=== PATIENT | male | born 1940 | race Caucasian/White ===

== ENCOUNTER 2022-08-03 12:23 | Emergency (ER) | payer OTHER ==
[2022-08-03] MEDS ORDERED: COLLAGENASE 30 GM OINTMENT TOP ONE (13:00)
--- NOTE | 2022-08-03 13:30 | ER ---
Nurse's Notes [facility] Name: Srinivasan Salgado Age: 81 yrs Sex: Male : 1940 Arrival Date: 08/03/2022 Time: 12:25 Bed 19 Private MD: Carrie Batista Diagnosis: Pressure ulcer of sacral region, stage 2 Presentation: 08/03 12:32 Chief complaint: Abscess on buttock x 1 month. Coronavirus screen: At this time, the hb client does not indicate any symptoms associated with coronavirus-19. Ebola Screen: No symptoms or risks identified at this time. Initial Sepsis Screen: Does the patient meet any 2 criteria? No. Patient's initial sepsis screen is negative. Does the patient have a suspected source of infection? No. Patient's initial sepsis screen is negative. Risk Assessment: Do you want to hurt yourself or someone else? Patient reports no desire to harm self or others. Onset of symptoms was July 2022. 12:32 Method Of Arrival: Ambulatory 12:32 Acuity: CHAVO 4 Triage Assessment: 12:54 General: Appears in no apparent distress. uncomfortable, Behavior is calm, cooperative, kc6 appropriate for age. Pain: Complains of pain in coccyx Pain does not radiate. Pain currently is 4 out of 10 on a pain scale. Quality of pain is described as aching, Pain began gradually, Is chronic, Alleviated by repositioning, Aggravated by weight bearing, Current management is with CBD oil, Penicillin Cream, memory foam cushion. is partially effective. EENT: No signs and/or symptoms were reported regarding the EENT system. Neuro: Andres Agitation-Sedation Scale (RASS): 0 - Alert and Calm Level of Consciousness is awake, alert, obeys commands, Oriented to person, place, time, situation, Appropriate for age. Cardiovascular: Capillary refill < 3 seconds. Respiratory: Airway is patent Respiratory effort is even, unlabored, Respiratory pattern is regular, symmetrical. GI: No signs and/or symptoms were reported involving the gastrointestinal system. : No signs and/or symptoms were reported regarding the genitourinary system. Derm: Skin is healthy with good turgor, blanchable erythema and skin breakdown to the sacral area without swelling or drainage Skin is pink, warm \T\ dry. Wound noted coccyx. Musculoskeletal: No signs and/or symptoms reported regarding the musculoskeletal system. Circulation, motion, and sensation intact. Capillary refill < 3 seconds, Range of motion: intact in all extremities. Historical: - Allergies: 12:33 Lipitor; hb 12:33 TETRACYCLINES; hb - Home Meds: 13:01 Glipizide Oral [Active]; Metformin Oral [Active]; Metoprolol Tartrate Oral [Active]; kc6 Lantus Sub-Q [Active]; Isosorbide Dinitrate Oral [Active]; Aspirin Oral [Active]; atorvastatin oral [Active]; Vitamin D Oral [Active]; ezetimibe oral [Active]; Furosemide Oral [Active]; losartan oral [Active]; pantoprazole oral [Active]; - PMHx: 13:01 Diabetes mellitus; Chronic obstructive lung disease; Hypertensive disorder; kc6 - PSHx: 13:01 Appendectomy; kc6 - Immunization history:: Client reports having NOT received the Covid vaccine. Flu vaccine is not up to date. - Social history:: Smoking status: unknown. - Family history:: not pertinent. - Hospitalizations: : No recent hospitalization is reported. Screenin:08 Abuse screen: Denies threats or abuse. Denies injuries from another. Nutritional kc6 screening: No deficits noted. Tuberculosis screening: No symptoms or risk factors identified. Fall Risk No fall in past 12 months (0 pts). No secondary diagnosis (0 pts). No IV (0 pts). Ambulatory Aid- None/Bed Rest/Nurse Assist (0 pts). Gait- Normal/Bed Rest/Wheelchair (0 pts) Mental Status- Oriented to own ability (0 pts). Total Jalloh Fall Scale indicates No Risk (0-24 pts). Assessment: 13:00 Reassessment: see triage assessment. kc6 Vital Signs: 12:32 BP 117 / 56; Pulse 83; Resp 16; Temp 97.8; Pulse Ox 100% on R/A; Weight 88 kg; Height 5 hb ft. 8 in. (172.72 cm); Pain 9/10; 12:59 BP 117 / 56 Sitting (auto/reg); Pulse 83; Resp 16 S; Temp 97.5(O); Pulse Ox 99% on R/A; kc6 Pain 4/10; 12:32 Body Mass Index 29.50 (88.00 kg, 172.72 cm) hb ED Course: 12:25 Patient arrived in ED. am2 12:25 Carrie Batista FNP-C is Private Physician. am2 12:28 Milind Felipe, RN is Primary Nurse. jd3 12:29 Wilfred Trent MD is Attending Physician. rn 12:33 Triage completed. hb 12:33 Arm band placed on. hb 13:08 Patient has correct armband on for positive identification. Bed in low position. Call kc6 light in reach. Adult w/ patient. 13:08 No provider procedures requiring assistance completed. kc6 13:37 Patient did not have IV access during this emergency room visit. kc6 Administered Medications: 13:07 Drug: Santyl (collagenase) Ointment 250 unit/g 1 application Route: Topical; Site: kc6 affected area; Medication: 13:39 VIS not applicable for this client. kc6 Outcome: 13:30 Discharge ordered by . rn 13:37 Discharged to home ambulatory, with family. kc6 13:37 Condition: stable 13:37 Discharge instructions given to patient, family, Instructed on discharge instructions, medication usage, wound care, Demonstrated understanding of instructions, medications, wound care, Prescriptions given X 1. 13:39 Patient left the ED. kc6 Signatures: Wilfred Trent MD MD rn Baxter, Heather, RN RN Sapna Zimmerman 2 Milind Felipe, Toya Smith RN, RN RN kcGi
--- NOTE | 2022-08-03 13:30 | EDPHYS ---
Physician Documentation [facility] Name: Srinivasan Salgado Age: 81 yrs Sex: Male : 1940 Arrival Date: 08/03/2022 Time: 12:25 Bed 19 Private MD: Carrie Batista ED Physician Wilfred Trent HPI: 08/03 14:46 This 81 yrs old Male presents to ER via Ambulatory with complaints of Skin Sore(s). rn 14:46 the patient presents with a swollen area of the buttocks and coccyx. Description: rn erythematous, swollen. 14:48 Onset: The symptoms/episode began/occurred 1 month(s) ago. Possible cause(s): pressure rn ulcer. Associated signs and symptoms: Pertinent positives: erythema, Pertinent negatives: drainage, fever, swelling. Modifying factors: the symptoms are alleviated by nothing, the symptoms are aggravated by pressure, sitting. Severity of symptoms: At their worst the symptoms were moderate, in the emergency department the symptoms are unchanged. The patient has not experienced similar symptoms in the past. The patient has not recently seen a physician. 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 No swelling or abscess. No drainage. . Historical: - Allergies: 12:33 Lipitor; hb 12:33 TETRACYCLINES; hb - Home Meds: 13:01 Glipizide Oral [Active]; Metformin Oral [Active]; Metoprolol Tartrate Oral [Active]; kc6 Lantus Sub-Q [Active]; Isosorbide Dinitrate Oral [Active]; Aspirin Oral [Active]; atorvastatin oral [Active]; Vitamin D Oral [Active]; ezetimibe oral [Active]; Furosemide Oral [Active]; losartan oral [Active]; pantoprazole oral [Active]; - PMHx: 13:01 Diabetes mellitus; Chronic obstructive lung disease; Hypertensive disorder; kc6 - PSHx: 13:01 Appendectomy; kc6 - Immunization history:: Client reports having NOT received the Covid vaccine. Flu vaccine is not up to date. - Social history:: Smoking status: unknown. - Family history:: not pertinent. - Hospitalizations: : No recent hospitalization is reported. ROS: 14:48 Constitutional: Negative for fever, chills, and weight loss, Cardiovascular: Negative rn for chest pain, palpitations, and edema, Respiratory: Negative for shortness of breath, cough, wheezing, and pleuritic chest pain, Abdomen/GI: Negative for abdominal pain, nausea, vomiting, diarrhea, and constipation, Back: Negative for injury MS/Extremity: Negative for injury and deformity, Skin: + mild redness to tailbone Neuro: Negative for headache, weakness, numbness, tingling, and seizure. Exam: 14:48 Constitutional: This is a well developed, well nourished patient who is awake, alert, rn and in no acute distress. Cardiovascular: Regular rate and rhythm. No pulse deficits. Respiratory: No increased work of breathing, no retractions or nasal flaring. Skin: + erythema and irritation in gluteal cleft overlying coccyx, + small area of open ulcer/pressure ulcer. NO drainage. NO fluctuance. Vital Signs: 12:32 BP 117 / 56; Pulse 83; Resp 16; Temp 97.8; Pulse Ox 100% on R/A; Weight 88 kg; Height 5 hb ft. 8 in. (172.72 cm); Pain 9/10; 12:59 BP 117 / 56 Sitting (auto/reg); Pulse 83; Resp 16 S; Temp 97.5(O); Pulse Ox 99% on R/A; kc6 Pain 4/10; 12:32 Body Mass Index 29.50 (88.00 kg, 172.72 cm) hb MDM: 12:29 Patient medically screened. rn 14:48 Differential diagnosis: pressure ulceration, pressure sore. Data reviewed: vital signs, rn nurses notes, and as a result, I will discharge patient. Counseling: I had a detailed discussion with the patient and/or guardian regarding: the historical points, exam findings, and any diagnostic results supporting the discharge/admit diagnosis, the need for outpatient follow up, to return to the emergency department if symptoms worsen or persist or if there are any questions or concerns that arise at home. Special discussion: I discussed with the patient/guardian in detail that at this point there is no indication for admission to the hospital. It is understood, however, that if the symptoms persist or worsen the patient needs to return immediately for re-evaluation. ED course: Given bottle of santyl for wound application, recommend seat cushion, and change in pants given jeans with thick fold/crease where it hurts him. . Administered Medications: 13:07 Drug: Santyl (collagenase) Ointment 250 unit/g 1 application Route: Topical; Site: kc6 affected area; Disposition Summary: 08/03/22 13:30 Discharge Ordered Location: Home rn Problem: an ongoing problem rn Symptoms: have improved rn Condition: Stable rn Diagnosis - Pressure ulcer of sacral region, stage 2 rn Followup: rn - With: Private Physician - When: As needed - Reason: Recheck today's complaints, Re-evaluation by your physician Discharge Instructions: - Discharge Summary Sheet rn - Wound Care, Adult rn Forms: - Medication Reconciliation Form rn - Thank You Letter rn - 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
[2022-08-03 13:50] VITALS: BP 117/56
[2022-08-03 13:51] VITALS: TEMP 97.5; O2SAT 99
== END 2022-08-03 13:39 | disposition home or self-care (01) ==
LOC: ER 12:23
DX: L89.152 Pressure ulcer of sacral region, stage 2 (principal); E11.9 Type 2 diabetes mellitus without complications; I10 Essential (primary) hypertension; Z79.82 Long term (current) use of aspirin; Z79.4 Long term (current) use of insulin; Z88.1 Allergy status to other antibiotic agents; Z88.8 Allergy status to other drugs, medicaments and biological substances
CPT/HCPCS: 99283; J3590

== ENCOUNTER 2022-08-04 11:30 | Emergency (ER) | payer OTHER ==
--- NOTE | 2022-08-04 12:42 | RAD REPORT ---
EXAM DESCRIPTION: US - Lower Extremity Artery Uni Ltd - 08/04/2022 12:34 pm CLINICAL HISTORY: Leg pain COMPARISON: None FINDINGS: The right common femoral, superficial femoral and popliteal arteries demonstrate triphasic waveforms The right posterior tibial and dorsalis pedis arteries demonstrate biphasic waveforms Grayscale, color and spectral analysis performed on all vessels IMPRESSION: Mild distal lower extremity arterial disease
--- NOTE | 2022-08-04 12:46 | RAD REPORT ---
EXAM DESCRIPTION: USExtremity Venous Uni Ltd08/04/2022 12:34 pm CLINICAL HISTORY: Right leg pain COMPARISON: None. FINDINGS: Right common femoral, superficial femoral, popliteal and right posterior tibial veins are compressible and demonstrate augmentation. Doppler demonstrates good flow. 3 x 2 centimeter Nelson's cyst Grayscale, color and spectral analysis performed on all vessels IMPRESSION: No evidence of deep venous thrombosis involving the right lower extremity. 3 centimeter Nelson's cyst
[2022-08-04] MEDS ORDERED: KETOROLAC 30 MG/ML INJ ONE (13:08)
--- NOTE | 2022-08-04 13:47 | RAD REPORT ---
EXAM DESCRIPTION: RAD - Knee Right 3 View - 08/04/2022 1:39 pm CLINICAL HISTORY: Right knee pain FINDINGS: No fracture or dislocation is seen. No significant bone or joint abnormality seen Vas are calcifications present
--- NOTE | 2022-08-04 14:11 | ER ---
Nurse's Notes [facility] Name: Srinivasan Salgado Age: 81 yrs Sex: Male : 1940 Arrival Date: 08/04/2022 Time: 11:31 Bed 20 Private MD: Diagnosis: Synovial cyst of popliteal space [Nelson], right knee Presentation: 08/04 11:26 Chief complaint: EMS states: pt from home, said he came up here yesterday for his knee tw2 pain. today knee pain was so bad that he couldn't get up and stand on it to go to the bathroom, so we did a lift assist to get him here. he said he took 650 mg Tylenol about 1 hour ago and we gave 1 gm of Tylenol . pain is the same. Hx: Htn, DM, sacral decubitus. Coronavirus screen: At this time, the client does not indicate any symptoms associated with coronavirus-19. Ebola Screen: Patient denies travel to an Ebola-affected area in the 21 days before illness onset. Initial Sepsis Screen: Does the patient meet any 2 criteria?. Initial Sepsis Screen: Does the patient have a suspected source of infection? No. Patient's initial sepsis screen is negative. Risk Assessment: Do you want to hurt yourself or someone else? Patient reports no desire to harm self or others. Onset of symptoms was August 04, 2022. 11:26 Method Of Arrival: EMS: [facility] tw2 11:26 Acuity: CHAVO 4 tw2 11:33 Ebola Screen: Patient denies travel to an Ebola-affected area in the 21 days before ll1 illness onset. Triage Assessment: 11:32 General: Appears in no apparent distress. Behavior is calm, cooperative, appropriate ll1 for age. Pain: Complains of pain in R knee Quality of pain is described as aching. Musculoskeletal: Circulation, motion, and sensation intact. Capillary refill < 3 seconds, Reports pain in L knee. Historical: - Allergies: 11:32 Lipitor; ll1 11:32 TETRACYCLINES; ll1 - PMHx: 11:32 Chronic obstructive lung disease; Hypertensive disorder; diabetes mellitus; ll1 - PSHx: 11:32 Appendectomy; ll1 - Immunization history:: Adult Immunizations up to date. - Social history:: Smoking status: . - Family history:: not pertinent. - Hospitalizations: : No recent hospitalization is reported. Screenin:33 Abuse screen: Denies threats or abuse. Nutritional screening: No deficits noted. ll1 Tuberculosis screening: No symptoms or risk factors identified. Fall Risk Fall in past 12 months (25 points). IV access (20 points). Gait- Weak (10 pts.). Total Jalloh Fall Scale indicates High Risk Score (45 or more points). Fall prevention measures have been instituted. Side Rails Up X 2 Placed Close to Nursing Station Frequent Obs/Assessments Occuring Family Present and informed to notify staff if the need to leave the bedside As available patient and family educated on Fall Prevention Program and Strategies. Assessment: 12:25 Reassessment: No changes from previously documented assessment. Patient and/or family ll1 updated on plan of care and expected duration. Pain level reassessed. Patient is alert, oriented x 3, equal unlabored respirations, skin warm/dry/pink. 13:12 Reassessment: No changes from previously documented assessment. Patient and/or family ll1 updated on plan of care and expected duration. Pain level reassessed. 13:54 Reassessment: No changes from previously documented assessment. Patient and/or family ll1 updated on plan of care and expected duration. Pain level reassessed. 14:31 Reassessment: No changes from previously documented assessment. Patient and/or family ll1 updated on plan of care and expected duration. Pain level reassessed. Vital Signs: 11:26 BP 99 / 59; Pulse 70; Resp 17; Temp 98.1(O); Pulse Ox 100% on R/A; Weight 88 kg (R); tw2 Height 5 ft. 8 in. (172.72 cm); Pain 7/10; 12:25 BP 95 / 48; Pulse 67; Pulse Ox 100% ; ll1 13:12 BP 109 / 58; ll1 14:31 BP 123 / 65; Pulse 65; Resp 16; Pulse Ox 100% ; Pain 8/10; ll1 11:26 Body Mass Index 29.50 (88.00 kg, 172.72 cm) tw2 ED Course: 11:31 Patient arrived in ED. tw2 11:31 Yelitza Lowe, RN is Primary Nurse. ll1 11:31 Arm band placed on Patient placed in an exam room, on a stretcher. ll1 11:32 Wilfred Trent MD is Attending Physician. rn 11:33 Patient has correct armband on for positive identification. Bed in low position. Call ll1 light in reach. Side rails up X2. Client placed on continuous cardiac and pulse oximetry monitoring. NIBP monitoring applied. 11:36 Triage completed. tw2 12:35 Extremity Venous Uni Ltd US In Process Unspecified. EDMS 12:35 Lower Extremity Artery Uni Ltd US In Process Unspecified. EDMS 13:41 XRAY Knee RIGHT 3 view In Process Unspecified. EDMS 13:54 No provider procedures requiring assistance completed. Maintain EMS IV. Dressing ll1 intact. Good blood return noted. Site clean \T\ dry. Gauge \T\ site: 20 G R hand. 14:31 IV discontinued, intact, bleeding controlled, No redness/swelling at site. Pressure ll1 dressing applied. Administered Medications: 13:11 Not Given (physician changed routee): Ketorolac 30 mg IM once ll1 13:12 Drug: Ketorolac 15 mg Route: IVP; Site: right hand; ll1 14:32 Follow up: Response: No adverse reaction; Pain is decreased; RASS: Alert and Calm (0) ll1 Medication: 11:43 VIS not applicable for this client. tw2 Outcome: 14:10 Discharge ordered by . rn 14:32 Discharged to home via wheelchair. ll1 14:32 Condition: stable 14:32 Discharge instructions given to patient, family, Instructed on discharge instructions, follow up and referral plans. medication usage, crutch walking, Demonstrated understanding of instructions, follow-up care, medications, crutch walking, Prescriptions given X 1. 14:32 Patient left the ED. ll1 Signatures: Dispatcher [employer] EDWilfred Koch MD MD rn Wise, Tara, RN RN tw2 Yelitza Lowe RN RN ll1
--- NOTE | 2022-08-04 14:11 | EDPHYS ---
Physician Documentation [facility] Name: Srinivasan Salgado Age: 81 yrs Sex: Male : 1940 Arrival Date: 08/04/2022 Time: 11:31 Bed 20 Private MD: ED Physician Wilfred Trent HPI: 08/04 14:07 This 81 yrs old Male presents to ER via EMS with complaints of Knee Pain. rn 14:07 The patient presents with pain, that is acute. The complaints affect the posterior rn aspect of right knee. Onset: The symptoms/episode began/occurred at an unknown time. Modifying factors: The symptoms are alleviated by remaining still, the symptoms are aggravated by movement, weight bearing, bending knee. Severity of symptoms: At their worst the symptoms were moderate, in the emergency department the symptoms are unchanged. The patient has not experienced similar symptoms in the past. The patient has been recently seen at the [facility] Emergency Department. Denies injury to right knee, has been walking funny lately due to lower back pain, no fall. Hurts to bend knee, not extend. No knee swelling. . Historical: - Allergies: 11:32 Lipitor; ll1 11:32 TETRACYCLINES; ll1 - PMHx: 11:32 Chronic obstructive lung disease; Hypertensive disorder; diabetes mellitus; ll1 - PSHx: 11:32 Appendectomy; ll1 - Immunization history:: Adult Immunizations up to date. - Social history:: Smoking status: . - Family history:: not pertinent. - Hospitalizations: : No recent hospitalization is reported. ROS: 14:07 Constitutional: Negative for fever, chills, and weight loss, MS/Extremity: + right knee rn pain Skin: Negative for injury, rash, and discoloration, Neuro: Negative for headache, weakness, numbness, tingling, and seizure. Exam: 14:07 Constitutional: This is a well developed, well nourished patient who is awake, alert, rn and in no acute distress. Skin: Warm, dry with normal turgor. Normal color with no rashes, no lesions, and no evidence of cellulitis. MS/ Extremity: Pulses equal, no cyanosis. Neurovascular intact. + tenderness right popliteal fossa, no palpable cord, no calf tenderness or swelling Vital Signs: 11:26 BP 99 / 59; Pulse 70; Resp 17; Temp 98.1(O); Pulse Ox 100% on R/A; Weight 88 kg (R); tw2 Height 5 ft. 8 in. (172.72 cm); Pain 7/10; 12:25 BP 95 / 48; Pulse 67; Pulse Ox 100% ; ll1 13:12 BP 109 / 58; ll1 14:31 BP 123 / 65; Pulse 65; Resp 16; Pulse Ox 100% ; Pain 8/10; ll1 11:26 Body Mass Index 29.50 (88.00 kg, 172.72 cm) tw2 MDM: 11:32 Patient medically screened. rn 14:07 Differential diagnosis: tendonitis, Nelson's cyst, DVT, arthritis. Data reviewed: vital rn signs, nurses notes, old medical records, radiologic studies, plain films, ultrasound, and as a result, I will discharge patient. Counseling: I had a detailed discussion with the patient and/or guardian regarding: the historical points, exam findings, and any diagnostic results supporting the discharge/admit diagnosis, radiology results, the need for outpatient follow up, to return to the emergency department if symptoms worsen or persist or if there are any questions or concerns that arise at home. Response to treatment: the patient's symptoms have mildly improved after treatment, and as a result, I will discharge patient. Special discussion: I discussed with the patient/guardian in detail that at this point there is no indication for admission to the hospital. It is understood, however, that if the symptoms persist or worsen the patient needs to return immediately for re-evaluation. Based on the history and exam findings, there is no indication for further emergent testing or inpatient evaluation. I discussed with the patient/guardian the need to see the orthopedic surgeon for further evaluation of the symptoms. I discussed with the patient/guardian the need to see the primary care provider for further evaluation of the symptoms. 14:07 ED course: No pain in knee proper, no effusion, able to extend knee fine, + focal rn tenderness posterior to knee in popliteal fossa, u/s neg for DVT or occlusion, shows nelson's cyst.. 08/04 11:41 Order name: XRAY Knee RIGHT 3 view; Complete Time: 14: rn 08/04 11:41 Order name: Extremity Venous Uni Ltd US; Complete Time: 14: rn 08/04 11:41 Order name: Lower Extremity Artery Uni Ltd US; Complete Time: 14:06 rn 08/04 14:31 Order name: Misc. Order: Walker; Complete Time: 14:31 ll1 Administered Medications: 13:11 Not Given (physician changed routee): Ketorolac 30 mg IM once ll1 13:12 Drug: Ketorolac 15 mg Route: IVP; Site: right hand; ll1 14:32 Follow up: Response: No adverse reaction; Pain is decreased; RASS: Alert and Calm (0) ll1 Disposition Summary: 08/04/22 14:10 Discharge Ordered Location: Home rn Problem: new rn Symptoms: have improved rn Condition: Stable rn Diagnosis - Synovial cyst of popliteal space [Nelson], right knee rn Followup: rn - With: Private Physician - When: As needed - Reason: Recheck today's complaints, Re-evaluation by your physician Discharge Instructions: - Discharge Summary Sheet rn - Nelson Cyst rn Forms: - Medication Reconciliation Form rn - Thank You Letter rn - 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
[2022-08-04 14:37] VITALS: O2SAT 100
[2022-08-04 14:39] VITALS: BP 123/65
== END 2022-08-04 14:32 | disposition home or self-care (01) ==
LOC: ER 11:30
DX: M71.21 Synovial cyst of popliteal space [Baker], right knee (principal); Z88.1 Allergy status to other antibiotic agents; Z88.8 Allergy status to other drugs, medicaments and biological substances
CPT/HCPCS: 93926; 93971; 96374; 99284